=== PATIENT | female | born 1960 | race African-American/Black ===

== ENCOUNTER 2022-12-16 12:25 | Inpatient (IN) | payer OTHER ==
[2022-12-16] VITALS (14 sets, daily range): BP systolic 90–135; BP diastolic 56–83
[~2022-12-16] VITALS: Ht 154.9 cm; Wt 47.2 kg
[2022-12-16 14:24] LABS: CHLORIDE 104 mEq/L (98-107)
[2022-12-16 14:32] LABS: ETHANOL BLOOD < 10 mg/dL
[2022-12-16] MEDS ORDERED: IOHEXOL-350 100 ML BOTTLE ONE (14:39)
[2022-12-16] MEDS ORDERED: NICARDIPINE 40MG/200ML PREMIX 200 ML IV STA (15:11)
[2022-12-16 15:34] LABS: BASOPHILS % 0.5 % (0.0-2.0); EOSINOPHILS % 0.2 % (0.0-5.0); HEMATOCRIT. 38.4 % (36.0-48.0); HEMOGLOBIN. 12.9 g/dL (12.0-16.0); LYMPHOCYTES % 29.2 % (20.0-50.0); MEAN CORPUSCULAR HEMOGLOBIN 30.5 pg (28.0-32.0); MEAN CORPUSCULAR VOLUME 91.1 fL (81.0-99.0); MONOCYTES % 6.2 % (2.0-8.0); NEUTROPHILS % 63.9 % (40.0-76.0); PLATELET 239 x1000/uL (130-400); RED BLOOD CELL COUNT 4.22 mill/uL (4.2-5.4); RED CELL DISTRIBUTION WIDTH 13.7 % (11.6-14.6)
[2022-12-16] MEDS: DEXT 5%/LACTATED RINGERS 1,000 ML IV SCH (16:00)
[2022-12-16] MEDS ORDERED: NICARDIPINE 100 MG in SODIUM CHLORIDE 0.9% 60 ML IV PRN ×2 (16:00→21:15)
[2022-12-16 17:13] LABS: CLARITY URINE CLEAR (CLEAR); COLOR URINE YELLOW (YELLOW); KETONES URINE NEGATIVE (NEGATIVE); LEUKOCYTE ESTERASE URINE TRACE (NEGATIVE); NITRITE URINE NEGATIVE (NEGATIVE); OCCULT BLOOD URINE NEGATIVE (NEGATIVE); PROTEIN URINE NEGATIVE (NEGATIVE); SPECIFIC GRAVITY URINE 1.056 (1.005-1.030); UROBILINOGEN URINE 0.2 E.U./dL (0.2-1.0)
[2022-12-16 17:28] LABS: *AMPHETAMINES SCREEN URINE NEGATIVE (NEGATIVE); *BARBITURATES SCREEN URINE NEGATIVE (NEGATIVE); *BENZODIAZEPINES SCREEN URINE NEGATIVE (NEGATIVE); *COCAINE SCREEN URINE NEGATIVE (NEGATIVE); CANNABINOID URINE SCREEN NEGATIVE (NEGATIVE); METHADONE URINE SCREEN NEGATIVE (NEGATIVE); OPIATES URINE SCREEN NEGATIVE (NEGATIVE); PHENCYCLIDINE URINE SCREEN NEGATIVE (NEGATIVE)
[2022-12-16] MEDS ORDERED: LEVETIRACETAM 500MG PREMIX 100 ML IV SCH (18:00)
[2022-12-16] MEDS ORDERED: IPRATROPIUM/ALBUTEROL 0.5-3(2.5)MG/3ML NEB HHN PRN (18:15)
[2022-12-16] MEDS ORDERED: SODIUM CHLORIDE 0.9% 500 ML IV ONE (18:15)
[2022-12-16] MEDS ORDERED: DOCUSATE SODIUM 100MG CAPSULE PO PRN (18:15)
[2022-12-16] MEDS ORDERED: ACETAMINOPHEN 325MG TABLET PO PRN (18:15)
[2022-12-16] MEDS ORDERED: ONDANSETRON HCL 4MG/2ML INJ IV PRN (18:15)
[2022-12-16] MEDS ORDERED: ESMOLOL 2500MG PREMIX 250 ML IV PRN (18:15)
[2022-12-16] MEDS ORDERED: KEPP500 PO (21:48)
[2022-12-16] MEDS ORDERED: CARB-32 MT (21:48)
[2022-12-17] VITALS (33 sets, daily range): BP systolic 107–150; BP diastolic 42–102
[2022-12-17 05:35] LABS: BASOPHILS % 0.4 % (0.0-2.0); EOSINOPHILS % 0.6 % (0.0-5.0); HEMATOCRIT. 37.1 % (36.0-48.0); HEMOGLOBIN. 12.6 g/dL (12.0-16.0); LYMPHOCYTES % 28.3 % (20.0-50.0); MEAN CORPUSCULAR HEMOGLOBIN 31.1 pg (28.0-32.0); MEAN CORPUSCULAR VOLUME 91.4 fL (81.0-99.0); MEAN PLATELET VOLUME 9.6 fl (7.4-10.4); MONOCYTES % 7.4 % (2.0-8.0); NEUTROPHILS % 63.3 % (40.0-76.0); PLATELET 219 x1000/uL (130-400); RED BLOOD CELL COUNT 4.06 mill/uL (4.2-5.4)
[2022-12-17 05:49] LABS: CHLORIDE 105 mEq/L (98-107)
[2022-12-17] MEDS: DEXT 5%/LACTATED RINGERS 1,000 ML IV SCH ×2 (09:24→20:21)
[2022-12-17] MEDS ORDERED: POTASSIUM CHLORIDE 20MEQ TABLET SR PO NR (10:00)
[2022-12-17] MEDS: AMLODIPINE 2.5MG TABLET PO SCH ×2 (10:47→21:32)
[2022-12-17] MEDS: LEVETIRACETAM 500MG PREMIX 100 ML IV SCH ×2 (10:47→21:32)
[2022-12-17 12:00] LABS: PROTHROMBIN TIME 10.8 sec (9.6-11.0)
[2022-12-17] MEDS: CARBIDOPA/LEVODOPA 25/100MG TABLET PO SCH ×2 (14:19→21:35)
[2022-12-17] MEDS ORDERED: IPRATROPIUM BROMIDE (0.02%) 0.5MG/2.5ML NEB HHN PRN (15:15)
[2022-12-17] MEDS ORDERED: ALBUTEROL (0.083%) 2.5MG/3ML NEB HHN PRN (15:15)
[2022-12-17] MEDS: ACETAMINOPHEN 325MG TABLET PO PRN (19:51)
[2022-12-18] VITALS: BP 139/69
[2022-12-18 04:00] VITALS: BP 122/56
[2022-12-18] MEDS: CARBIDOPA/LEVODOPA 25/100MG TABLET PO SCH ×3 (05:46→21:28)
[2022-12-18] MEDS: LEVETIRACETAM 500MG PREMIX 100 ML IV SCH (09:22)
[2022-12-18] MEDS: AMLODIPINE 2.5MG TABLET PO SCH ×2 (09:23→21:28)
[2022-12-18] MEDS: ACETAMINOPHEN 325MG TABLET PO PRN (15:29)
[2022-12-18] MEDS: DEXT 5%/LACTATED RINGERS 1,000 ML IV SCH (17:40)
[2022-12-18 20:00] VITALS: BP 144/67
[2022-12-18] MEDS: LEVETIRACETAM 500MG TABLET PO SCH (21:28)
[2022-12-19] VITALS (7 sets, daily range): BP systolic 129–162; BP diastolic 63–92
[2022-12-19] MEDS: CARBIDOPA/LEVODOPA 25/100MG TABLET PO SCH ×3 (05:50→21:01)
[2022-12-19 07:48] LABS: BASOPHILS % 0.7 % (0.0-2.0); EOSINOPHILS % 0.8 % (0.0-5.0); HEMATOCRIT. 36.5 % (36.0-48.0); HEMOGLOBIN. 12.3 g/dL (12.0-16.0); LYMPHOCYTES % 30.2 % (20.0-50.0); MEAN CORPUSCULAR HEMOGLOBIN 30.6 pg (28.0-32.0); MEAN CORPUSCULAR VOLUME 91.2 fL (81.0-99.0); MEAN PLATELET VOLUME 9.5 fl (7.4-10.4); MONOCYTES % 8.2 % (2.0-8.0); NEUTROPHILS % 60.1 % (40.0-76.0); PLATELET 220 x1000/uL (130-400); RED CELL DISTRIBUTION WIDTH 13.3 % (11.6-14.6)
[2022-12-19 09:45] LABS: CHLORIDE 106 mEq/L (98-107)
[2022-12-19] MEDS: DEXT 5%/LACTATED RINGERS 1,000 ML IV SCH (10:40)
[2022-12-19] MEDS: AMLODIPINE 2.5MG TABLET PO SCH ×2 (11:49→21:02)
[2022-12-19] MEDS: LEVETIRACETAM 500MG TABLET PO SCH ×2 (11:50→21:01)
[2022-12-20] VITALS (56 sets, daily range): BP systolic 89–208; BP diastolic 53–205
[2022-12-20] MEDS: DEXT 5%/LACTATED RINGERS 1,000 ML IV SCH ×2 (04:11→09:13)
[2022-12-20] MEDS: CARBIDOPA/LEVODOPA 25/100MG TABLET PO SCH ×4 (06:00→21:19)
[2022-12-20] MEDS ORDERED: BACITRACIN 15GM TUBE TOP ONE (06:05)
[2022-12-20] MEDS ORDERED: THROMBIN (BOVINE) 5000 UNITS/VIAL TOP ONE (06:05)
[2022-12-20] MEDS ORDERED: GENTAMICIN SULF 40MG/ML 2ML VIAL ONE (06:06)
[2022-12-20] MEDS ORDERED: SKIN ADHESIVE 0.7 GM EA TOP ONE (06:06)
[2022-12-20] MEDS ORDERED: FENTANYL CITRATE/PF 50MCG/ML 2ML VIAL ONE (07:12)
[2022-12-20] MEDS ORDERED: ETOMIDATE 2MG/ML 10ML VIAL IV ONE (07:12)
[2022-12-20] MEDS ORDERED: MIDAZOLAM HCL 2 MG/2 ML VIAL ONE (07:13)
[2022-12-20] MEDS ORDERED: ROCURONIUM BROMIDE 10MG/ML VIAL 5ML IV ONE (07:14)
[2022-12-20] MEDS ORDERED: PROPOFOL 200MG/20ML VIAL IV ONE (07:35)
[2022-12-20] MEDS ORDERED: GLYCOPYRROLATE 0.2 MG/ML 2ML VIAL ONE ×2 (08:08→08:09)
[2022-12-20] MEDS ORDERED: NEOSTIGMINE METHYLSULFATE 1MG/ML 10 ML VIAL ONE (08:08)
[2022-12-20] MEDS ORDERED: NALOXONE HCL 0.4MG/ML VIAL IV PRN (08:30)
[2022-12-20] MEDS: AMLODIPINE 2.5MG TABLET PO SCH ×3 (08:54→21:13)
[2022-12-20] MEDS: LEVETIRACETAM 500MG TABLET PO SCH (08:54)
[2022-12-20 09:19] LABS: BG BASE EXCESS -1.3 mmol/L (-2.0-2.0); BG CARBOXYHEMOGLOBIN 0.3 % (0.5-1.5); BG DEOXYHEMOGLOBIN 0.9 % (0.0-5.0); BG FRACTION INSPIRED OXYGEN 60; BG HCO3 ACT 22.5 mmol/L (22.0-26.0); BG METHEMOGLOBIN 0.2 % (0.0-1.5); BG OXYGEN SATURATION 99.1 % (92.0-98.5); BG OXYHEMOGLOBIN 98.6 % (94.0-97.0); BG PCO2 34.4 mmHg (35.0-45.0); BG PH 7.433 (7.350-7.450); BG SAMPLE SITE ALINE; BG TOTAL HEMOGLOBIN 11.5 g/dL (12.0-18.0); BG VENT MODE ET TUBE
[2022-12-20] MEDS ORDERED: LEVETIRACETAM 500 MG in SODIUM CHLORIDE 0.9% 100 ML IV SCH (10:30)
[2022-12-20] MEDS ORDERED: LIDOCAINE HCL/EPINEPHRINE 1%-EPI 1:100,000 20 ML VIAL ONE (10:52)
[2022-12-20] MEDS: LEVETIRACETAM 500MG PREMIX 100 ML IV SCH ×2 (11:17→21:12)
[2022-12-20 12:37] LABS: BASOPHILS % 0.4 % (0.0-2.0); EOSINOPHILS % 0.4 % (0.0-5.0); HEMATOCRIT. 35.5 % (36.0-48.0); LYMPHOCYTES % 24.7 % (20.0-50.0); MEAN CORPUSCULAR HEMOGLOBIN 30.7 pg (28.0-32.0); MEAN CORPUSCULAR VOLUME 90.9 fL (81.0-99.0); MEAN PLATELET VOLUME 9.7 fl (7.4-10.4); MONOCYTES % 5.6 % (2.0-8.0); NEUTROPHILS % 68.9 % (40.0-76.0); PLATELET 208 x1000/uL (130-400); RED CELL DISTRIBUTION WIDTH 13.3 % (11.6-14.6)
[2022-12-20 13:12] LABS: CHLORIDE 106 mEq/L (98-107)
[2022-12-20] MEDS ORDERED: CEFAZOLIN SODIUM 1000MG/VIAL IV SCH (14:00)
[2022-12-20] MEDS: CEFAZOLIN 1000MG PREMIX 50 ML IV SCH ×2 (14:17→21:13)
[2022-12-20] MEDS: NICARDIPINE 100 MG in SODIUM CHLORIDE 0.9% 60 ML IV PRN (14:18)
[2022-12-20] MEDS: PANTOPRAZOLE SODIUM 40 MG/VIAL IV SCH (18:33)
[2022-12-21] VITALS (71 sets, daily range): BP systolic 0–148; BP diastolic 0–85
[2022-12-21] MEDS: DEXT 5%/LACTATED RINGERS 1,000 ML IV SCH ×2 (00:55→18:50)
[2022-12-21] MEDS: MORPHINE SULFATE 2 MG/ML CPJ (NOT FOR IM USE) IV PRN ×2 (01:47→09:33)
[2022-12-21 05:25] LABS: BASOPHILS % 0.1 % (0.0-2.0); EOSINOPHILS % 0.1 % (0.0-5.0); HEMATOCRIT. 33.5 % (36.0-48.0); HEMOGLOBIN. 11.2 g/dL (12.0-16.0); LYMPHOCYTES % 10.2 % (20.0-50.0); MEAN CORPUSCULAR HEMOGLOBIN 30.5 pg (28.0-32.0); MEAN CORPUSCULAR VOLUME 91.2 fL (81.0-99.0); MEAN PLATELET VOLUME 9.8 fl (7.4-10.4); MONOCYTES % 7.7 % (2.0-8.0); NEUTROPHILS % 81.9 % (40.0-76.0); PLATELET 191 x1000/uL (130-400); RED BLOOD CELL COUNT 3.67 mill/uL (4.2-5.4); RED CELL DISTRIBUTION WIDTH 13.5 % (11.6-14.6)
[2022-12-21 05:36] LABS: CHLORIDE 107 mEq/L (98-107)
[2022-12-21] MEDS: CARBIDOPA/LEVODOPA 25/100MG TABLET PO SCH ×3 (06:00→20:41)
[2022-12-21] MEDS: CEFAZOLIN 1000MG PREMIX 50 ML IV SCH ×2 (06:27→15:15)
[2022-12-21] MEDS: AMLODIPINE 2.5MG TABLET PO SCH ×2 (09:00→20:41)
[2022-12-21] MEDS: LEVETIRACETAM 500MG PREMIX 100 ML IV SCH ×2 (09:31→20:42)
[2022-12-21] MEDS: PANTOPRAZOLE SODIUM 40 MG/VIAL IV SCH (09:31)
[2022-12-21 10:07] LABS: BG BASE EXCESS 1.9 mmol/L (-2.0-2.0); BG CARBOXYHEMOGLOBIN 0.2 % (0.5-1.5); BG DEOXYHEMOGLOBIN 0.8 % (0.0-5.0); BG FRACTION INSPIRED OXYGEN 40; BG HCO3 ACT 24.9 mmol/L (22.0-26.0); BG METHEMOGLOBIN 0.3 % (0.0-1.5); BG OXYGEN SATURATION 99.2 % (92.0-98.5); BG OXYHEMOGLOBIN 98.7 % (94.0-97.0); BG PCO2 33.8 mmHg (35.0-45.0); BG PH 7.486 (7.350-7.450); BG PO2 183.6 mmHg (75.0-100.0); BG SAMPLE SITE RIGHT RADIAL; BG TOTAL HEMOGLOBIN 11.3 g/dL (12.0-18.0); BG VENT MODE VENT - SIMV
[2022-12-21] MEDS ORDERED: IPRATROPIUM/ALBUTEROL 0.5-3(2.5)MG/3ML NEB HHN PRN (13:00)
[2022-12-21 13:05] LABS: BG BASE EXCESS 2.5 mmol/L (-2.0-2.0); BG CARBOXYHEMOGLOBIN 0.1 % (0.5-1.5); BG DEOXYHEMOGLOBIN 0.9 % (0.0-5.0); BG FRACTION INSPIRED OXYGEN 40; BG HCO3 ACT 26.5 mmol/L (22.0-26.0); BG METHEMOGLOBIN 0.4 % (0.0-1.5); BG OXYGEN SATURATION 99.1 % (92.0-98.5); BG OXYHEMOGLOBIN 98.6 % (94.0-97.0); BG PCO2 38.7 mmHg (35.0-45.0); BG PH 7.453 (7.350-7.450); BG PO2 171.7 mmHg (75.0-100.0); BG SAMPLE SITE RIGHT RADIAL; BG TOTAL HEMOGLOBIN 12.3 g/dL (12.0-18.0); BG VENT MODE VENT - CPAP
[2022-12-21] MEDS: NICARDIPINE 100 MG in SODIUM CHLORIDE 0.9% 60 ML IV PRN (18:50)
[2022-12-22] VITALS (67 sets, daily range): BP systolic 111–152; BP diastolic 55–83
[2022-12-22 05:33] LABS: CHLORIDE 109 mEq/L (98-107)
[2022-12-22 05:35] LABS: BASOPHILS % 0.2 % (0.0-2.0); EOSINOPHILS % 0.2 % (0.0-5.0); HEMOGLOBIN. 11.5 g/dL (12.0-16.0); LYMPHOCYTES % 10.2 % (20.0-50.0); MEAN CORPUSCULAR HEMOGLOBIN 30.7 pg (28.0-32.0); MEAN PLATELET VOLUME 9.4 fl (7.4-10.4); MONOCYTES % 6.3 % (2.0-8.0); NEUTROPHILS % 83.1 % (40.0-76.0); PLATELET 174 x1000/uL (130-400); RED BLOOD CELL COUNT 3.74 mill/uL (4.2-5.4); RED CELL DISTRIBUTION WIDTH 13.5 % (11.6-14.6)
[2022-12-22] MEDS: CARBIDOPA/LEVODOPA 25/100MG TABLET PO SCH ×3 (05:55→22:21)
[2022-12-22] MEDS: PANTOPRAZOLE SODIUM 40 MG/VIAL IV SCH (08:54)
[2022-12-22] MEDS: LEVETIRACETAM 500MG PREMIX 100 ML IV SCH ×2 (08:54→21:34)
[2022-12-22] MEDS: AMLODIPINE 2.5MG TABLET PO SCH ×2 (08:54→21:35)
[2022-12-22] MEDS: DEXT 5%/LACTATED RINGERS 1,000 ML IV SCH (09:19)
[2022-12-23] VITALS (33 sets, daily range): BP systolic 120–160; BP diastolic 66–100
[2022-12-23] MEDS: DEXT 5%/LACTATED RINGERS 1,000 ML IV SCH (01:02)
[2022-12-23 05:53] LABS: BASOPHILS % 0.4 % (0.0-2.0); HEMATOCRIT. 32.5 % (36.0-48.0); LYMPHOCYTES % 21.6 % (20.0-50.0); MEAN CORPUSCULAR HEMOGLOBIN 30.9 pg (28.0-32.0); MEAN CORPUSCULAR VOLUME 91.5 fL (81.0-99.0); MEAN PLATELET VOLUME 9.9 fl (7.4-10.4); PLATELET 174 x1000/uL (130-400); RED BLOOD CELL COUNT 3.56 mill/uL (4.2-5.4); RED CELL DISTRIBUTION WIDTH 13.2 % (11.6-14.6)
[2022-12-23 06:04] LABS: CHLORIDE 109 mEq/L (98-107)
[2022-12-23] MEDS: CARBIDOPA/LEVODOPA 25/100MG TABLET PO SCH ×3 (06:42→22:56)
[2022-12-23] MEDS: AMLODIPINE 2.5MG TABLET PO SCH ×2 (08:44→22:56)
[2022-12-23] MEDS: LEVETIRACETAM 500MG PREMIX 100 ML IV SCH ×2 (08:44→22:57)
[2022-12-23] MEDS: PANTOPRAZOLE SODIUM 40 MG/VIAL IV SCH (08:44)
[2022-12-24] VITALS (7 sets, daily range): BP systolic 98–156; BP diastolic 72–94
[2022-12-24] MEDS: DEXT 5%/LACTATED RINGERS 1,000 ML IV SCH ×2 (00:42→12:30)
[2022-12-24] MEDS: CARBIDOPA/LEVODOPA 25/100MG TABLET PO SCH ×3 (06:00→21:46)
[2022-12-24] MEDS: AMLODIPINE 2.5MG TABLET PO SCH ×2 (09:00→21:47)
[2022-12-24] MEDS: PANTOPRAZOLE SODIUM 40 MG/VIAL IV SCH (09:00)
[2022-12-24] MEDS ORDERED: PANT40TA51 MT (09:26)
[2022-12-24] MEDS ORDERED: AMLO2.5T45 PO (09:26)
[2022-12-24] MEDS: LEVETIRACETAM 500MG PREMIX 100 ML IV SCH ×2 (11:39→21:46)
[2022-12-25 04:00] VITALS: BP 150/84
[2022-12-25] MEDS: DEXT 5%/LACTATED RINGERS 1,000 ML IV SCH ×2 (05:41→21:07)
[2022-12-25] MEDS: CARBIDOPA/LEVODOPA 25/100MG TABLET PO SCH ×3 (05:41→21:06)
[2022-12-25 07:30] LABS: BASOPHILS % 0.4 % (0.0-2.0); EOSINOPHILS % 0.9 % (0.0-5.0); HEMATOCRIT. 33.6 % (36.0-48.0); HEMOGLOBIN. 11.6 g/dL (12.0-16.0); LYMPHOCYTES % 28.2 % (20.0-50.0); MEAN CORPUSCULAR HEMOGLOBIN 30.9 pg (28.0-32.0); MEAN CORPUSCULAR VOLUME 89.6 fL (81.0-99.0); MEAN PLATELET VOLUME 8.9 fl (7.4-10.4); MONOCYTES % 10.7 % (2.0-8.0); NEUTROPHILS % 59.8 % (40.0-76.0); PLATELET 218 x1000/uL (130-400); RED BLOOD CELL COUNT 3.75 mill/uL (4.2-5.4); RED CELL DISTRIBUTION WIDTH 12.7 % (11.6-14.6)
[2022-12-25 08:00] VITALS: BP 129/80
[2022-12-25] MEDS: LEVETIRACETAM 500MG PREMIX 100 ML IV SCH ×2 (08:57→21:06)
[2022-12-25] MEDS: AMLODIPINE 2.5MG TABLET PO SCH ×2 (08:58→21:07)
[2022-12-25] MEDS: FAMOTIDINE 20MG/2ML VIAL IV SCH ×2 (08:58→21:06)
[2022-12-25 12:00] VITALS: BP 149/82
[2022-12-25 16:00] VITALS: BP 152/86
[2022-12-25 20:00] VITALS: BP 167/88
[2022-12-26] VITALS: BP 148/84
[2022-12-26 04:00] VITALS: BP 168/85
[2022-12-26] MEDS: CARBIDOPA/LEVODOPA 25/100MG TABLET PO SCH ×2 (06:02→15:05)
[2022-12-26 07:47] LABS: EOSINOPHILS % 0.5 % (0.0-5.0); HEMATOCRIT. 32.6 % (36.0-48.0); HEMOGLOBIN. 11.2 g/dL (12.0-16.0); LYMPHOCYTES % 23.9 % (20.0-50.0); MEAN CORPUSCULAR HEMOGLOBIN 30.9 pg (28.0-32.0); MEAN CORPUSCULAR VOLUME 89.8 fL (81.0-99.0); MEAN PLATELET VOLUME 9.6 fl (7.4-10.4); MONOCYTES % 10.5 % (2.0-8.0); NEUTROPHILS % 64.1 % (40.0-76.0); PLATELET 232 x1000/uL (130-400); RED BLOOD CELL COUNT 3.63 mill/uL (4.2-5.4); RED CELL DISTRIBUTION WIDTH 12.7 % (11.6-14.6)
[2022-12-26 08:00] VITALS: BP 160/90
[2022-12-26] MEDS: LEVETIRACETAM 500MG PREMIX 100 ML IV SCH (08:11)
[2022-12-26 08:42] LABS: CHLORIDE 106 mEq/L (98-107)
[2022-12-26] MEDS: ACETAMINOPHEN 325MG TABLET PO PRN ×2 (08:50→15:05)
[2022-12-26] MEDS: AMLODIPINE 2.5MG TABLET PO SCH (08:50)
[2022-12-26 12:00] VITALS: BP 130/76
[2022-12-26] MEDS ORDERED: POTASSIUM CHLORIDE 20MEQ/PACKET PO NR (13:15)
[2022-12-26] MEDS: DEXT 5%/LACTATED RINGERS 1,000 ML IV SCH (14:30)
[2022-12-26] MEDS ORDERED: FAMOTIDINE 20MG/2ML VIAL IV SCH (21:00)
== END 2022-12-26 17:36 | disposition home health service (06) | DRG 29 ==
LOC: ER 12:25 → EDBD 14:38 → MICUSO 14:38 → 7WST 12-17 15:10 → MICUSO 12-20 09:18 → 6EST 12-23 15:14
PROVIDERS: ADMIT Internal Medicine; ATTEND Internal Medicine
PROC: 0JB70ZZ Excision of Back Subcutaneous Tissue and Fascia, Open Approach (ICD-10-PCS; principal; 2022-12-19)
PROC: 4A00X4Z Measurement of Central Nervous Electrical Activity, External Approach (ICD-10-PCS; 2022-12-19)
PROC: 00C43ZZ Extirpation of Matter from Intracranial Subdural Space, Percutaneous Approach (ICD-10-PCS; 2022-12-24)
PROC: 00U Central Nervous System and Cranial Nerves, Supplement (ICD-10-PCS; 2022-12-24)
PROC: 4A103BD Monitoring of Intracranial Pressure, Percutaneous Approach (ICD-10-PCS; 2022-12-24)
DX: I62.02 Nontraumatic subacute subdural hemorrhage (principal); G93.40 Encephalopathy, unspecified; R64 Cachexia; E44.1 Mild protein-calorie malnutrition; L89.153 Pressure ulcer of sacral region, stage 3; R47.01 Aphasia; I10 Essential (primary) hypertension; E87.6 Hypokalemia; G40.909 Epilepsy, unspecified, not intractable, without status epilepticus; D72.829 Elevated white blood cell count, unspecified; G96.00 Cerebrospinal fluid leak, unspecified; D18.1 Lymphangioma, any site; Z20.822 Contact with and (suspected) exposure to COVID-19; Z79.899 Other long term (current) drug therapy; Z74.01 Bed confinement status; I69.351 Hemiplegia and hemiparesis following cerebral infarction affecting right dominant side; Z68.1 Body mass index [BMI] 19.9 or less, adult
CPT/HCPCS: 31500; 36415; 36600; 70496; 70498; 70551; 71045; 80048; 80053; 80305; 80320; 81003; 82375; 82805; 82962; 84145; 85025; 86850; 86900; 87426; 92610; 93005; 94003; 95816; 99291; C1758; C1893; C9113; J0690; J1580; J1953; J2250; J2270; J2704; J2710; J3010; J3490; J7050; J7121; Q9967; C1713; G0480

== ENCOUNTER 2022-12-29 10:06 | Inpatient (IN) | payer OTHER ==
[~2022-12-29] VITALS: Ht 152.4 cm; Wt 49.4 kg
[~2022-12-29 10:06] MED LIST: AMLO2.5T45 PO; CARB-32 MT; KEPP500 PO; PANT40TA51 MT
[2022-12-29 11:54] LABS: EOSINOPHILS % 0.1 % (0.0-5.0); HEMATOCRIT. 37.9 % (36.0-48.0); MEAN CORPUSCULAR HEMOGLOBIN 30.5 pg (28.0-32.0); MEAN CORPUSCULAR VOLUME 89.2 fL (81.0-99.0); MEAN PLATELET VOLUME 8.9 fl (7.4-10.4); MONOCYTES % 5.5 % (2.0-8.0); NEUTROPHILS % 76.4 % (40.0-76.0); PLATELET 347 x1000/uL (130-400); RED BLOOD CELL COUNT 4.25 mill/uL (4.2-5.4); RED CELL DISTRIBUTION WIDTH 13.3 % (11.6-14.6)
[2022-12-29] MEDS ORDERED: SODIUM CHLORIDE 0.9% 1,000 ML IV ONE (12:15)
[2022-12-29 12:41] LABS: PROTHROMBIN TIME 11.2 sec (9.6-11.0)
[2022-12-29 13:03] LABS: CHLORIDE 102 mEq/L (98-107)
[2022-12-29 13:10] LABS: ETHANOL BLOOD < 10 mg/dL
[2022-12-29] MEDS ORDERED: IOHEXOL-350 100 ML BOTTLE ONE (13:26)
[2022-12-29 13:34] LABS: CLARITY URINE CLEAR (CLEAR); COLOR URINE YELLOW (YELLOW); KETONES URINE NEGATIVE (NEGATIVE); LEUKOCYTE ESTERASE URINE NEGATIVE (NEGATIVE); NITRITE URINE NEGATIVE (NEGATIVE); OCCULT BLOOD URINE NEGATIVE (NEGATIVE); PH URINE 8.5 (4.5-8.0); PROTEIN URINE NEGATIVE (NEGATIVE); SPECIFIC GRAVITY URINE 1.008 (1.005-1.030); UROBILINOGEN URINE 0.2 E.U./dL (0.2-1.0)
[2022-12-29 13:50] LABS: *AMPHETAMINES SCREEN URINE NEGATIVE (NEGATIVE); *BARBITURATES SCREEN URINE NEGATIVE (NEGATIVE); *BENZODIAZEPINES SCREEN URINE NEGATIVE (NEGATIVE); *COCAINE SCREEN URINE NEGATIVE (NEGATIVE); CANNABINOID URINE SCREEN NEGATIVE (NEGATIVE); METHADONE URINE SCREEN NEGATIVE (NEGATIVE); OPIATES URINE SCREEN NEGATIVE (NEGATIVE); PHENCYCLIDINE URINE SCREEN NEGATIVE (NEGATIVE)
[2022-12-29] MEDS ORDERED: LABETALOL 5MG/ML SYR 20 MG/4 ML SYRINGE IV PRN (14:30)
[2022-12-29] MEDS ORDERED: ONDANSETRON HCL 4MG/2ML INJ IV PRN (14:30)
[2022-12-29] MEDS ORDERED: HYDROCODONE/ACETAMINOPHEN 5/325MG TABLET PO PRN (14:30)
[2022-12-29] MEDS ORDERED: ACETAMINOPHEN 325MG TABLET PO PRN ×2 (14:30)
[2022-12-29] MEDS ORDERED: DOCUSATE SODIUM 100MG CAPSULE PO PRN (14:30)
[2022-12-29] MEDS ORDERED: IPRATROPIUM/ALBUTEROL 0.5-3(2.5)MG/3ML NEB HHN PRN (14:30)
[2022-12-29] MEDS ORDERED: CLONIDINE 0.1MG TABLET PO PRN (14:30)
[2022-12-29] MEDS ORDERED: LORAZEPAM 0.5MG TABLET PO PRN (14:30)
[2022-12-29] MEDS ORDERED: NALOXONE HCL 0.4MG/ML VIAL IV PRN (14:45)
[2022-12-29 16:30] VITALS: BP 151/78
[2022-12-29 17:11] VITALS: BP 160/82
[2022-12-29 20:00] VITALS: BP 156/76
[2022-12-30] VITALS: BP 143/66
[2022-12-30 04:00] VITALS: BP 157/75
[2022-12-30 06:40] LABS: BASOPHILS % 0.7 % (0.0-2.0); EOSINOPHILS % 0.1 % (0.0-5.0); HEMATOCRIT. 34.4 % (36.0-48.0); HEMOGLOBIN. 11.9 g/dL (12.0-16.0); LYMPHOCYTES % 29.6 % (20.0-50.0); MEAN CORPUSCULAR HEMOGLOBIN 31.3 pg (28.0-32.0); MEAN CORPUSCULAR VOLUME 90.6 fL (81.0-99.0); MEAN PLATELET VOLUME 8.9 fl (7.4-10.4); MONOCYTES % 7.1 % (2.0-8.0); NEUTROPHILS % 62.5 % (40.0-76.0); PLATELET 332 x1000/uL (130-400); RED CELL DISTRIBUTION WIDTH 12.8 % (11.6-14.6)
[2022-12-30 07:29] LABS: CHLORIDE 103 mEq/L (98-107)
[2022-12-30] MEDS ORDERED: POTASSIUM CHLORIDE 20MEQ TABLET SR PO NR (09:45)
[2022-12-30] MEDS: PANTOPRAZOLE 40MG DR TABLET PO SCH (10:37)
[2022-12-30 12:00] VITALS: BP 157/96
[2022-12-30] MEDS: CARBIDOPA/LEVODOPA 25/100MG TABLET PO SCH ×2 (14:24→21:42)
[2022-12-30 15:10] VITALS: BP 113/70
[2022-12-30 20:00] VITALS: BP 136/65
[2022-12-30] MEDS: LEVETIRACETAM 500MG TABLET PO SCH (21:42)
[2022-12-31] VITALS: BP 136/69
[2022-12-31 04:00] VITALS: BP 159/69
[2022-12-31] MEDS: CARBIDOPA/LEVODOPA 25/100MG TABLET PO SCH ×3 (05:43→21:39)
[2022-12-31] MEDS: PANTOPRAZOLE 40MG DR TABLET PO SCH (05:43)
[2022-12-31 08:00] VITALS: BP 151/74
[2022-12-31] MEDS: LEVETIRACETAM 500MG TABLET PO SCH (09:33)
[2022-12-31 12:00] VITALS: BP 164/77
[2022-12-31 16:00] VITALS: BP 152/77
[2022-12-31 17:33] LABS: EOSINOPHILS % 0.5 % (0.0-5.0); HEMATOCRIT. 32.6 % (36.0-48.0); HEMOGLOBIN. 11.3 g/dL (12.0-16.0); LYMPHOCYTES % 30.2 % (20.0-50.0); MEAN CORPUSCULAR HEMOGLOBIN 30.9 pg (28.0-32.0); MEAN CORPUSCULAR VOLUME 89.3 fL (81.0-99.0); MEAN PLATELET VOLUME 8.7 fl (7.4-10.4); MONOCYTES % 6.2 % (2.0-8.0); NEUTROPHILS % 62.1 % (40.0-76.0); PLATELET 312 x1000/uL (130-400); RED BLOOD CELL COUNT 3.65 mill/uL (4.2-5.4); RED CELL DISTRIBUTION WIDTH 12.8 % (11.6-14.6)
[2022-12-31 20:00] VITALS: BP 150/77
[2022-12-31] MEDS: LEVETIRACETAM 500MG/5ML CUP PO SCH (21:39)
[2023-01-01] VITALS (7 sets, daily range): BP systolic 129–156; BP diastolic 70–85
[2023-01-01] MEDS: CARBIDOPA/LEVODOPA 25/100MG TABLET PO SCH ×2 (05:34→14:11)
[2023-01-01 07:38] LABS: BASOPHILS % 0.4 % (0.0-2.0); HEMATOCRIT. 30.3 % (36.0-48.0); HEMOGLOBIN. 10.5 g/dL (12.0-16.0); LYMPHOCYTES % 41.5 % (20.0-50.0); MEAN CORPUSCULAR VOLUME 89.3 fL (81.0-99.0); MEAN PLATELET VOLUME 8.6 fl (7.4-10.4); MONOCYTES % 6.8 % (2.0-8.0); NEUTROPHILS % 50.3 % (40.0-76.0); PLATELET 299 x1000/uL (130-400)
[2023-01-01 08:13] LABS: CHLORIDE 102 mEq/L (98-107)
[2023-01-01] MEDS: LEVETIRACETAM 500MG/5ML CUP PO SCH ×2 (08:47→20:36)
[2023-01-01] MEDS: FAMOTIDINE 20MG TABLET PO SCH ×2 (08:47→20:36)
[2023-01-01] MEDS ORDERED: POTASSIUM CHLORIDE 20MEQ/PACKET PO NR (14:00)
[2023-01-01] MEDS ORDERED: ALBUTEROL (0.083%) 2.5MG/3ML NEB HHN PRN (16:45)
[2023-01-01] MEDS ORDERED: IPRATROPIUM BROMIDE (0.02%) 0.5MG/2.5ML NEB HHN PRN (16:45)
== END 2023-01-01 20:51 | disposition home health service (06) | DRG 50 ==
LOC: ER 10:12 → 7EST 11:55 → ENRESERV 14:15
PROVIDERS: ADMIT Internal Medicine; ATTEND Internal Medicine
DX: G03.9 Meningitis, unspecified (principal); G93.41 Metabolic encephalopathy; E44.0 Moderate protein-calorie malnutrition; I69.351 Hemiplegia and hemiparesis following cerebral infarction affecting right dominant side; I10 Essential (primary) hypertension; G40.909 Epilepsy, unspecified, not intractable, without status epilepticus; E87.6 Hypokalemia; Z20.822 Contact with and (suspected) exposure to COVID-19; Z74.01 Bed confinement status; Z68.21 Body mass index [BMI] 21.0-21.9, adult
CPT/HCPCS: 36415; 70496; 70498; 70551; 71045; 80048; 80053; 80305; 80320; 81003; 82962; 83880; 84145; 84484; 85025; 86850; 86900; 87426; 87804; 92610; 93005; 93971; 99291; C1893; J7030; Q9967; G0480